=== PATIENT | male | born 1940 | race Caucasian/White ===

== ENCOUNTER 2020-12-13 15:24 | Emergency (ER) | payer MEDICARE, OTHER ==
[~2020-12-13] VITALS: Ht 165.1 cm; Wt 78.0 kg
[~2020-12-13 15:24] MED LIST: BENADRYL25 MG PO; MOBIC7.5 MG PO; NAPROSYN375 MG PO; PERCOCET 5-3251 EACH PO; PREDNISONE20 MG PO; PRILOSEC20 MG PO; VITAMIN B12-FO1 EACH PO
== END 2020-12-13 18:30 | disposition home or self-care (01) ==
LOC: ED 15:24
PROC: 093K7ZZ Control Bleeding in Nasal Mucosa and Soft Tissue, Via Natural or Artificial Opening (ICD-10-PCS; principal; 2020-12-13)
DX: R04.0 Epistaxis (principal); Z87.891 Personal history of nicotine dependence; Z88.1 Allergy status to other antibiotic agents
CPT/HCPCS: 30901; 99283-25

== ENCOUNTER 2022-01-11 19:45 | Emergency (ER) | payer OTHER, MEDICARE ==
[~2022-01-11] VITALS: Ht 165.1 cm; Wt 78.7 kg
[2022-01-11] MEDS ORDERED: CYCLOBENZAPRINE10 MG PO (22:03)
== END 2022-01-11 22:31 | disposition home or self-care (01) ==
LOC: ED 19:45
DX: S16.1XXA Strain of muscle, fascia and tendon at neck level, initial encounter (principal); Z88.1 Allergy status to other antibiotic agents; Z87.891 Personal history of nicotine dependence; V89.2XXA Person injured in unspecified motor-vehicle accident, traffic, initial encounter
CPT/HCPCS: 72125; 99283-25